=== PATIENT | female | born 1965 | race Caucasian/White ===

== ENCOUNTER 2016-11-15 14:50 | Emergency (ER) | payer BC, OTHER ==
--- NOTE | ~2016-11-15 | CT71 ---
[facility] A Service of [facility] RADIOLOGY TEXT RESULTS PATIENT: BRUNO MCCLURE LOCATION: SED : 65 UNIT #: [id number] AGE: [address]: Roshan Cannon MD SEX: F ORDER DR: [id number] [place] [id number] E MR#: [id number] Acc #: [id number] NAME: BRUNO MCCLURE : 1965 SEX: F STUDY DATE/TIME: 11/15/2016 15:44 UNIT: SED ROOM: STUDY DESCRIPTION: CT Head Wo Contrast Attending Physician: Roshan Cannon M.D. Ordering Physician: Roshan Cannon M.D. MEDICAL IMAGING REPORT This report is preliminary unless electronic signature is present. EXAM Head CT, 11/15. INDICATION Severe headache that started this morning. FINDINGS Axial images were obtained from the base to the vertex without contrast. No comparison. This CT exam was performed with one or more of the following radiation dose reduction techniques: automatic exposure control, adjustment of mA and/or kV according to patient size, and iterative reconstruction. Ventricular size and configuration are within normal limits. There is subarachnoid hemorrhage in the left cerebral hemisphere predominately involving the parietal region and occipital region. There is a small volume of subdural hemorrhage layering along the interhemispheric falx. There is a round hypodense lesion near the vertex along the falx which is of unknown etiology. It measures 1.7 x 1.3 cm. When clinically feasible, MRI recommended for follow up. No mass effect or midline shift is seen. No skull fracture. IMPRESSION Abnormal examination demonstrating subarachnoid hemorrhage predominately in the left parietal and occipital regions. No mass effect is identified. There is also a small volume of subdural blood within the interhemispheric falx. Ventricular size is normal. There is a hypodense rounded lesion near the vertex to the left of midline abutting the falx. This measures 1.3 x 1.7 cm and is of unknown etiology. I would recommend MRI for follow-up when clinically feasible. ADDENDUM [facility] A Service of [facility] RADIOLOGY TEXT RESULTS PATIENT: BRUNO MCCLURE LOCATION: [facility] [place] : 65 UNIT #: [id number] AGE: [address]: Roshan Cannon MD SEX: F ORDER DR: Findings have been discussed directly with Dr. Cannon in the emergency room prior to this dictation. STAT * RESULT Dictated by... Kobe Harris Jr., M.D. THIS IS AN ELECTRONICALLY VERIFIED REPORT Kobe Harris Jr., M.D. at 11/16/2016 12:58 PM HIRAL/efrem TD: 11/15/2016 16:02 JOB #: [id number] MEDICAL IMAGING REPORT Page 1 of 1
[2016-11-15] MEDS ORDERED: STEROID (15:03)
[2016-11-15 16:09] LABS: BASOPHIL# 0.1 X10e3 (0-0.3); BASOPHIL% 0.4 % (0-2.5); EOSINOPHIL% 0.2 % (0.0-7.0); HEMATOCRIT 42.6 % (35.0-45.0); HEMOGLOBIN 14.5 gm/dL (12.0-16.0); LYMPHOCYTE# 1.4 X10e3 (1.0-3.5); LYMPHOCYTE% 10.3 % (17.0-45.0); MEAN CELL VOLUME 90.4 FL (83-96); MEAN CORPUSCULAR HEMOGLOBIN 30.8 PG (28-34); MEAN CORPUSCULAR HGB CONC 34.1 g/dL (30-36); MEAN PLATELET VOLUME 9.5 FL (6.5-11.5); MONOCYTE# 0.6 X10e3 (0-1.0); MONOCYTE% 4.9 % (3.0-12.0); NEUTROPHIL# 11.1 X10e3 (1.5-7.1); NEUTROPHIL% 84.2 % (40-75); PLATELET COUNT 190 X10e3 (140-420); RED BLOOD COUNT 4.72 X10e (3.90-5.30); RED CELL DISTRIBUTION WIDTH 13.4 % (11.0-15.5); WHITE BLOOD COUNT 13.2 X10e3 (4.0-10.5)
[2016-11-15 16:13] LABS: DIFF IND NO
[2016-11-15 16:19] LABS: INR 1.2; PROTHROMBIN TIME (PATIENT) 14.1 SECONDS (9.5-12.4)
[2016-11-15 16:26] LABS: PARTIAL THROMBOPLASTIN TIME 25.5 SECONDS (25.6-38.1)
[2016-11-15 16:39] LABS: BUN/CREATININE RATIO 24.28; CREATININE SERUM 0.7 mg/dL (0.6-1.4); GLOM FILT RATE Estimated 100.3 mL/min (>60); POTASSIUM 2.8 mmol/L (3.5-5.1)
== END 2016-11-15 16:37 | disposition hospice, home (50) ==
LOC: SED 14:50
PROVIDERS: Emergency Medicine
DX: I60.9 Nontraumatic subarachnoid hemorrhage, unspecified (principal)
CPT/HCPCS: 70450; 80048; 85025; 85610; 85730; 96372; 99291; J0780; J1200; J2270